=== PATIENT | male | born 1955 | race Caucasian/White ===

== ENCOUNTER 2021-06-12 06:32 | Outpatient (REF) | payer SELFPAY ==
[2021-06-12 06:56] LABS: Hematocrit 29.6 % (42-52); Hemoglobin 9.2 g/dl (14.0-18.0); Mean Corpuscular HGB Conc 31.1 g/dl (31.0-36.0); Mean Corpuscular Hemoglobin 32.3 pg (27.0-33.0); Mean Corpuscular Volume 103.9 fL (80-98); Mean Platelet Volume 9.4 fL (9.4-12.4); Platelet Count 230 X10*3/uL (160-400); Red Blood Count 2.85 X10*6/uL (4.60-5.80); Red Cell Distribution Width 15.1 % (11.0-16.0); White Blood Count 6.2 X10*3/uL (4.8-10.8)
[2021-06-12 07:13] LABS: INTERNATIONAL NORM RATIO 1.8 (0.9-1.1); Prothrombin Time 21.1 SEC (9.9-13.0)
[2021-06-12 07:39] LABS: Alanine Aminotransferase < 6 U/L (0-40); Albumin Level 2.8 g/dL (3.5-5.0); Alkaline Phosphatase 65 U/L (39-117); Anion Gap 14 (12-20); Aspartate Amino Transferase 16 U/L (5-37); Bilirubin Total 0.9 mg/dL (0.0-1.0); Blood Urea Nitrogen 30 mg/dL (9-16); Calcium 9.4 mg/dL (8.4-10.2); Carbon Dioxide 30 mmol/L (22-29); Chloride 96 mmol/L (96-108); Estimated Glomerular Filt Rate 12; Glucose Random 99 mg/dL (60-115); Potassium 4.7 mmol/L (3.3-5.1); Sodium 135 mmol/L (135-145); Total Protein 6.8 g/dL (6.5-8.0)
== END 2021-06-12 06:33 | disposition home or self-care (01) ==
LOC: HO.MMNH1L 06:32
PROVIDERS: Visit Provider Family Medicine
DX: A41.9 Sepsis, unspecified organism (principal); R09.02 Hypoxemia; I48.91 Unspecified atrial fibrillation
CPT/HCPCS: 36415; 80053; 85027; 85610

== ENCOUNTER 2021-06-15 07:02 | Outpatient (REF) | payer SELFPAY ==
[2021-06-15 07:33] LABS: INTERNATIONAL NORM RATIO 2.2 (0.9-1.1); Prothrombin Time 25.7 SEC (9.9-13.0)
== END 2021-06-15 07:03 | disposition home or self-care (01) ==
LOC: HO.MMNH1L 07:02
PROVIDERS: Visit Provider Family Medicine
DX: I48.91 Unspecified atrial fibrillation (principal)
CPT/HCPCS: 36415; 85610

== ENCOUNTER 2021-06-18 12:01 | Outpatient (REF) | payer SELFPAY ==
[2021-06-18 07:20] LABS: INTERNATIONAL NORM RATIO 1.5 (0.9-1.1); Prothrombin Time 17.7 SEC (9.9-13.0)
== END 2021-06-18 12:02 | disposition home or self-care (01) ==
LOC: HO.MMNH1L 12:01
PROVIDERS: Visit Provider Family Medicine
DX: I48.91 Unspecified atrial fibrillation (principal); N18.6 End stage renal disease
CPT/HCPCS: 36415; 85610

== ENCOUNTER 2021-06-28 00:27 | Outpatient (REF) | payer MEDICAID, SELFPAY | END 2021-06-28 00:28 | disposition home or self-care (01) | LOC: HO.MMNH1L 00:27 | PROVIDERS: Visit Provider Family Medicine | DX: Z13.89 Encounter for screening for other disorder (principal) ==

== ENCOUNTER 2021-07-11 01:05 | Outpatient (REF) | payer SELFPAY ==
[2021-07-11 06:28] LABS: INTERNATIONAL NORM RATIO 1.5 (0.9-1.1)
== END 2021-07-11 01:06 | disposition home or self-care (01) ==
LOC: HO.MMNH1L 01:05
PROVIDERS: Visit Provider Family Medicine
DX: I25.10 Atherosclerotic heart disease of native coronary artery without angina pectoris (principal); E11.9 Type 2 diabetes mellitus without complications; D63.8 Anemia in other chronic diseases classified elsewhere
CPT/HCPCS: 36415; 85610

== ENCOUNTER 2021-09-14 13:42 | Outpatient (REF) | payer SELFPAY ==
[2021-09-14 13:48] LABS: MANUAL DIFF FLAG NO
[2021-09-14 13:53] LABS: Basophils Absolute Auto 0.1 X10*3/uL (0.0-0.2); Basophils Percent Auto 0.7 % (0-2); Eosinophils Absolute Auto 1.4 X10*3/uL (0.0-0.4); Eosinophils Percent Auto 15.5 % (0-4); Hematocrit 31.8 % (42.0-52.0); Hemoglobin 10.1 g/dl (14.0-18.0); Imm Gran Abs Auto 0.01 X10*3/uL (0.00-0.03); Imm Gran Pct Auto 0.1 % (0.0-0.4); Lymphocytes Absolute Auto 0.6 X10*3/uL (1.2-4.9); Lymphocytes Percent Auto 6.8 % (20-40); Mean Corpuscular HGB Conc 31.8 g/dl (31.0-36.0); Mean Corpuscular Hemoglobin 31.3 pg (27.0-33.0); Mean Corpuscular Volume 98.5 fL (80.0-98.0); Mean Platelet Volume 9.9 fL (9.4-12.4); Monocytes Absolute Auto 0.6 X10*3/uL (0.1-1.2); Monocytes Percent Auto 6.9 % (2-11); Neutrophils Absolute Auto 6.26 x10*3/uL (2.0-8.3); Platelet Count 220 X10*3/uL (160-400); Red Blood Count 3.23 X10*6/uL (4.60-5.80); Red Cell Distribution Width 17.3 % (11.0-16.0)
[2021-09-14 14:12] LABS: INTERNATIONAL NORM RATIO 2.6 (0.9-1.1); Prothrombin Time 30.4 SEC (9.9-13.0)
[2021-09-14 14:15] LABS: Alanine Aminotransferase 9 U/L (0-40); Albumin Level 3.2 g/dL (3.5-5.0); Alkaline Phosphatase 128 U/L (39-117); Anion Gap 17 (12-20); Aspartate Amino Transferase 21 U/L (5-37); Bilirubin Total 0.9 mg/dL (0.0-1.0); Blood Urea Nitrogen 31 mg/dL (9-16); Calcium 9.2 mg/dL (8.4-10.2); Carbon Dioxide 28 mmol/L (22-29); Chloride 95 mmol/L (96-108); Estimated Glomerular Filt Rate 18; Glucose Random 116 mg/dL (60-115); Phosphorus 3.4 mg/dL (2.7-4.5); Potassium 4.4 mmol/L (3.3-5.1); Sodium 136 mmol/L (135-145); Total Protein 7.1 g/dL (6.5-8.0)
== END 2021-09-14 13:43 | disposition home or self-care (01) ==
LOC: HO.MMNH1L 13:42
PROVIDERS: Visit Provider Family Medicine
DX: N18.6 End stage renal disease (principal); I48.91 Unspecified atrial fibrillation
CPT/HCPCS: 36415; 80053; 83735; 84100; 85025; 85610